=== PATIENT | female | born 1950 | race Caucasian/White ===

== ENCOUNTER 2022-09-23 19:44 | Emergency (ER) | payer MEDICARE, SELFPAY ==
--- NOTE | ~2022-09-23 | XR_ITS ---
EXAMINATION: XR WRIST, LEFT XR HAND, LEFT CLINICAL INFORMATION: Swelling and pain. Question injury. COMPARISON: None available. TECHNIQUE: 3 views of the left hand with scaphoid view as well. FINDINGS: There is no fracture. Degenerative changes at the triscaphe joint and first carpometacarpal joint. Prominent osteophytes of the first carpometacarpal joint with joint space narrowing. Mild degenerative change throughout the interphalangeal joints. Mild diffuse soft tissue swelling of the hand. XR/XR hand wrist LT IMPRESSION: No acute fracture or malalignment. Degenerative changes throughout the hand and wrist.
[2022-09-23 20:22] VITALS: BP 178/68; PULSE 84; RESP 16; TEMP 36.5; O2SAT 95; BMI 24.2
--- NOTE | 2022-09-23 20:22 | ED.FALL ---
HPI - Fall General Chief Complaint: Fall <Zakia Christianson NP - Last Filed: 09/23/22 20:27> Stated Complaint: ? fall, L hand is swollen and tender, alzheimer's <Zakia Christianson NP - Last Filed: 09/23/22 20:27> Time Seen by Provider: 09/23/22 21:06 <Zakia Christianson NP - Last Filed: 09/23/22 20:27> Source: patient and family <Michaela Wisdom MD - Last Filed: 09/23/22 21:52> Mode of arrival: ambulatory <Michaela Wisdom MD - Last Filed: 09/23/22 21:52> History of Present Illness HPI Narrative: 72-year-old female with Alzheimer's is brought in by family member for new onset of left thumb pain and swelling that happened today. Patient denies any fevers or chills. <Michaela Wisdom MD - Last Filed: 09/23/22 21:52> Related Data Home Medications: Previous Rx's Medication Instructions Recorded prednisone 10 mg tablet 10 mg PO DAILY #5 tabs 09/23/22 <Zakia Christianson NP - Last Filed: 09/23/22 20:27> Allergies/Adverse Reactions: Allergies Allergy/AdvReac Type Severity Reaction Status Date / Time doxycycline Allergy Mild Unknown Verified 09/23/22 20:24 <Zakia Christianson NP - Last Filed: 09/23/22 20:27> Review of Systems Review of Systems: Pertinent positives and negatives as stated in HPI <Michaela Wisdom MD - Last Filed: 09/23/22 21:52> PMFSH Past Medical History Source: nursing notes reviewed <Michaela Wisdom MD - Last Filed: 09/23/22 21:52> Social History Social History: Social History Advance Directives: No Advance Directives Information Provided: No <Zakia Christianson NP - Last Filed: 09/23/22 20:27> Physical Exam Vital Signs: Vital Signs: Last Vital Signs Temp 97.7 F 09/23/22 20:22 Pulse 84 09/23/22 20:22 Resp 16 09/23/22 20:22 BP 178/68 H 09/23/22 20:22 Pulse Ox 95 09/23/22 20:22 O2 Del Method Room Air 09/23/22 20:22 BMI result Body Mass Index 24.2 <Zakia Christianson NP - Last Filed: 09/23/22 20:27> Vital Signs: Last Vital Signs Temp 97.7 F 09/23/22 20:22 Pulse 84 09/23/22 20:22 Resp 16 09/23/22 20:22 BP 178/68 H 09/23/22 20:22 Pulse Ox 95 09/23/22 20:22 O2 Del Method Room Air 09/23/22 20:22 BMI result Body Mass Index 24.2 VITAL SIGNS: Reviewed. GENERAL: Well developed, well nourished, in no acute distress. HEAD: Normocephalic/atraumatic EYES: PERRLA, EOMI EARS: Ext canals without abnormality OROPHARYNX: no oral lesions noted, posterior pharynx clear NECK: Supple, no adenopathy, no midline cervical spine tenderness or step-offs LUNGS: Normal breath sounds. No adventitious sounds or accessory muscle use. SpO2<95> CARDIOVASCULAR: Regular rate and rhythm without noted murmurs, no JVD but bilateral lower extremity edema that appears chronic in nature ABDOMEN: Soft, non-tender, non-distended with bowel sounds. MUSCULOSKELETAL: No tenderness, deformities, or effusions noted on gross inspection. EXTREMITIES: No cyanosis, clubbing or edema; LEFT WRIST/HAND: There is isolated swelling, minimal erythema, to the base of the left thumb, no pain on passive flexion or ABduction but pain when MCP is palpated and on extension of the thumb, no pain on palpation over snuffbox or wrist bones and no pain at the DIP, cap refill less than 2 seconds SKIN: Inspection of the skin reveals no rashes NEUROLOGIC: Alert and oriented x 4. Strength and sensation to light touch were grossly intact x 4. <Michaela Wisdom MD - Last Filed: 09/23/22 21:52> Course Course Course Narrative: This is a rapid medical exam. Deferred additional HPI, ROS, PE to primary provider. 72 yo female with history of dementia, afib not on AC therapy, arthritis, HLD here with with concern for left hand swelling/redness which family believes happened from a fall today. They did not witness the fall and patient unable to provide a HPI. As we are unsure if there was a head strike or LOC we did discuss obtaining a CT of the head but family at this time do not believe the patient would cooperate, she is at her baseline mental status wray. Will obtain x-ray left wrist/hand. VSS <Zakia Christianson NP - Last Filed: 09/23/22 20:27> Medical Decision Making Medical Decision Making MDM Narrative: 72-year-old female with history and clinical presentation after review of imaging studies unclear etiology. Due to the acute nature I doubt cellulitis and will not start patient on antibiotics at this time. However, it is possible that this is arthritic or gout in nature or possible tendinous injury. Patient is otherwise hemodynamically stable and discuss the treatment options with the family member at bedside. There is agreement that patient, who has Alzheimer's, will be discharged with a splint to remind her that she has an injury and then she will be started on a low-dose of prednisone until she follows up with her primary care provider. <Michaela Wisdom MD - Last Filed: 09/23/22 21:52> Differential Diagnosis Please see the discussion above <Michaela Wisdom MD - Last Filed: 09/23/22 21:52> Radiology Impression Radiologist Impression: My interpretation is in agreement with radiology's impression of the imaging studies. <Michaela Wisdom MD - Last Filed: 09/23/22 21:52> Discharge Plan Discharge Clinical Impression: Swelling of left thumb <Zakia Christianson NP - Last Filed: 09/23/22 20:27> Patient Disposition: Home, Self-Care <Zakia Christianson NP - Last Filed: 09/23/22 20:27> Instructions: Gout (ED), Splint Care (ED), Swollen Joint (ED) <Zakia Christianson NP - Last Filed: 09/23/22 20:27> Additional Instructions: 1. Please resume all home medications as prescribed. 2. You have been given a prescription for 10 mg of prednisone and should take this daily with food in the morning. 3. Please follow-up with your primary care provider. Return to the ER for any worsening symptoms. <Zakia Christianson NP - Last Filed: 09/23/22 20:27> Prescriptions: New prednisone 10 mg tablet 10 mg PO DAILY Qty: 5 0RF <Zakia Christianson NP - Last Filed: 09/23/22 20:27> Referrals: Frankie Hsu MD [Primary Care Provider] - <Zakia Christianson NP - Last Filed: 09/23/22 20:27>
[2022-09-23] MEDS: predniSONE 10 MG TABLET PO (21:51)
== END 2022-09-23 22:06 | disposition home or self-care (01) ==
PROVIDERS: Emergency Provider Student in an Organized Health Care Education/Training Program; PCP Internal Medicine
DX: M25.442 Effusion, left hand (principal); M79.642 Pain in left hand; M25.532 Pain in left wrist
CPT/HCPCS: 73110; 73130; 99283; 99284